=== PATIENT | male | born 1985 | race Caucasian/White ===

== ENCOUNTER 2018-09-10 10:42 | Inpatient (IN) | payer BC ==
[2018-09-10 12:32] VITALS: BMI 34.8
--- NOTE | 2018-09-10 13:34 | HP ---
CIWA Score Nausea/Vomitin Muscle Tremors: 2 Anxiety: 3 Agitation: 0-Normal Activity Paroxysmal Sweats: 2 Orientation: 0-Oriented Tacttile Disturbances: 1-Very Mild Itch/Numbness Auditory Disturbances: 0-None Visual Disturbances: 2-Mild Sensitivity Headache: 2-Mild CIWA-Ar Total Score: 14 - Admission Criteria OASAS Guidelines: Admission for Medically Managed Detox: Requires at least one of the followin. CIWA greater than 12 2. Seizures within the past 24 hours 3. Delirium tremens within the past 24 hours 4. Hallucinations within the past 24 hours 5. Acute intervention needed for co occurring medical disorder 6. Acute intervention needed for co occurring psychiatric disorder 7. Severe withdrawal that cannot be handled at a lower level of care (continued vomiting, continued diarrhea, abnormal vital signs) requiring intravenous medication and/or fluids 8. Patient presents the following: CIWA greater than 12 Admission Criteria Met: Admission criteria met Admission ROS S - HPI Chief Complaint: " I am here detox off xanax " Allergies/Adverse Reactions: Allergies Allergy/AdvReac Type Severity Reaction Status Date / Time No Known Allergies Allergy Verified 09/10/18 12:50 History of Present Illness: 33 yo male with hx of heroin (nasal), xanax and nicotine dependence is here seeking detox for xanax. Utox positive for daryl, fen, opi, mtd, bzo. Patient currently on MMTP [facility] on methadone 70 mg , last medicated today, dose verified. Hx depression and anxiety. Denies any hx of seizures or black outs Exam Limitations: No Limitations - Ebola screening Have you traveled outside of the country in the last 21 days: No Have you had contact with anyone from an Ebola affected area: No Have you been sick,other than usual withdrawal symptoms: No Do you have a fever: No - Review of Systems Constitutional: Chills, Diaphoresis, Loss of Appetite, Changes in sleep EENT: reports: No Symptoms Reported Respiratory: reports: Shortness of Breath (when anxious) Cardiac: reports: No Symptoms Reported GI: reports: Nausea, Poor Appetite, Poor Fluid Intake : reports: No Symptoms Reported Musculoskeletal: reports: Joint Pain Integumentary: reports: No Symptoms Reported Neuro: reports: See HPI, Headache, Tingling, Dizziness Endocrine: reports: Increased Thirst Hematology: reports: No Symptoms Reported Psychiatric: reports: Orientated x3, Anxious Other Systems: Reviewed and Negative Patient History - Patient Medical History Hx Anemia: No Hx Asthma: No Hx Chronic Obstructive Pulmonary Disease (COPD): No Hx Cancer: No Hx Cardiac Disorders: No Hx Congestive Heart Failure: No Hx Hypertension: No Hx Hypercholesterolemia: No Hx Pacemaker: No HX Cerebrovascular Accident: No Hx Seizures: No Hx Dementia: No Hx Diabetes: No Hx Gastrointestinal Disorders: No Hx Liver Disease: No Hx Genitourinary Disorders: No Hx Sexually Transmitted Disorders: No Hx Renal Disease (ESRD): No Hx Thyroid Disease: No Hx Human Immunodeficiency Virus (HIV): No Hx Hepatitis C: No Hx Depression: Yes Hx Suicide Attempt: No Hx Bipolar Disorder: No Hx Schizophrenia: No - Patient Surgical History Past Surgical History: Yes Hx Orthopedic Surgery: Yes (left shoulder surgery 2012) - PPD History Previous Implant?: Yes (hx of BCG vaccine in [place]) Documented Results: Positive w/o proof Implanted On Prior [facility] Admission?: No PPD to be Administered?: No - Reproductive History Patient : No - Smoking Cessation Smoking history: Current every day smoker Have you smoked in the past 12 months: Yes Aproximately how many cigarettes per day: 10 Hx Chewing Tobacco Use: No Initiated information on smoking cessation: Yes 'Breaking Loose' booklet given: 09/10/18 - Substance & Tx. History Hx Alcohol Use: No Hx Substance Use: Yes Substance Use Type: Heroin, Tranquilizers Hx Substance Use Treatment: Yes (Last detox [facility] two years ago) - Substances Abused Heroin Route: Inhalation Frequency: Daily Amount used: 10 bags Age of first use: 23 Date of Last Use: 09/08/18 Alprazolam (Xanax) Route: Oral Frequency: Daily Amount used: 6mg Age of first use: 28 Date of Last Use: 09/08/18 Family Disease History - Family Disease History Family History: Denies Admission Physical Exam [facility] - Vital Signs Vital Signs: Vital Signs - 24 hr 09/10/18 12:29 Temperature 98.4 F Pulse Rate 50 L Respiratory 18 Rate Blood Pressure 112/56 L - Physical General Appearance: Yes: Appropriately Dressed, Obese, Sweating, Anxious HEENTM: Yes: EOMI, Hearing grossly Normal, Normal ENT Inspection, Normocephalic , Normal Voice, GENO, Pharynx Normal, Tm's normal Respiratory: Yes: Chest Non-Tender, Lungs Clear, Normal Breath Sounds, No Respiratory Distress, No Accessory Muscle Use Neck: Yes: Within Normal Limits Breast: Yes: Breast Exam Deferred Cardiology: Yes: Regular Rhythm, Bradycardia Abdominal: Yes: Normal Bowel Sounds, Non Tender, Flat, Soft Genitourinary: Yes: Within Normal Limits Back: Yes: Normal Inspection Musculoskeletal: Yes: full range of Motion, Gait Steady, Pelvis Stable Extremities: Yes: Normal Capillary Refill, Normal Inspection, Normal Range of Motion, Non-Tender Neurological: Yes: gantry rigger II-XII NML intact, Fully Oriented, Alert, Motor Strength 5/5, Normal Mood/Affect (anxious) Integumentary: Yes: Normal Color, Warm, Diaphoresis Lymphatic: Yes: Within Normal Limits - Diagnostic (1) Opioid dependence on agonist therapy Current Visit: Yes Status: Acute (2) Sedative, hypnotic or anxiolytic dependence with withdrawal, uncomplicated Current Visit: Yes Status: Acute Cleared for Admission [facility] - Detox or Rehab [facility] Level of Care: Medically Managed Detox Regimen/Protocol: Valium [facility] Breath Alcohol Content Breath Alcohol Content: 0 Urine Drug Screen - Results Drug Screen Negative: No Urine Drug Screen Results: DARYL-Cocaine, OPI-Opiates, BZO-Benzodiazepines, MTD- Methadone, FEN-Fentanyl Inpatient Rehab Admission - Rehab Decision to Admit Inpatient rehab admission?: No
[2018-09-10] MEDS ORDERED: MAGNESIUM HYDROX 2400MG/30ML ORAL SUSPENSION 30 ML CUP PO PRN (13:37)
[2018-09-10] MEDS ORDERED: METHOCARBAMOL 500 MG TABLET PO PRN (13:37)
[2018-09-10] MEDS ORDERED: MELATONIN 5 MG TABLETS PO PRN (13:37)
[2018-09-10] MEDS ORDERED: MENTHOL/PHENOL 1 EACH UD MM PRN (13:37)
[2018-09-10] MEDS ORDERED: hydrOXYzine PAMOATE 25 MG CAPSULE (FP) PO PRN (13:37)
[2018-09-10] MEDS ORDERED: MAG HYDROX/AL HYDROX/SIMETH 30 ML UNIT-DOSE CUP PO PRN (13:37)
[2018-09-10] MEDS ORDERED: MAGNESIUM CITRATE 300 ML BOTTLE PO PRN (13:37)
[2018-09-10] MEDS ORDERED: IBUPROFEN 400 MG TABLET (FP) PO PRN (13:37)
[2018-09-10] MEDS ORDERED: BISMUTH SUBSALICYLATE 524 MG/30 ML UD PO PRN (13:37)
[2018-09-10] MEDS ORDERED: ACETAMINOPHEN 325 MG TABLET (FP) PO PRN ×2 (13:37)
[2018-09-10] MEDS ORDERED: ONDANSETRON *ODT* 4 MG TABLET SL PRN (13:37)
[2018-09-10] MEDS ORDERED: diazePAM 5 MG TABLET PO ONE (14:40)
[2018-09-10] MEDS: diazePAM 5 MG TABLET PO PRN (19:34)
[2018-09-10] MEDS: diazePAM 5 MG TABLET PO SCH (22:20)
[2018-09-10] MEDS: THIAMINE HCL 100 MG TABLET (FP) PO SCH (22:20)
[2018-09-11 00:08] LABS: URINE APPEARANCE CLEAR; URINE BILIRUBIN NEGATIVE (<2.0 mg/dL); URINE COLOR DKYELLOW; URINE GLUCOSE (UA) NEGATIVE (NEGATIVE); URINE KETONE NEGATIVE (NEGATIVE); URINE LEUK ESTERASE NEGATIVE (NEGATIVE); URINE NITRITE NEGATIVE (NEGATIVE); URINE PROTEIN NEGATIVE (NEGATIVE); URINE UROBILINOGEN NEGATIVE mg/dL (0.2-1.0)
[2018-09-11] MEDS: diazePAM 5 MG TABLET PO SCH ×3 (05:25→22:23)
[2018-09-11] MEDS ORDERED: METHADONE HCL 40 MG DISPERSABLE TABLET ONE (05:59)
[2018-09-11] MEDS ORDERED: METHADONE HCL 10 MG TABLET ONE (05:59)
[2018-09-11] MEDS ORDERED: METHADONE HCL 10 MG TABLET PO SCH (06:00)
[2018-09-11] MEDS: METHADONE 40 MG, METHADONE 30 MG PO SCH (06:02)
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
[2018-09-11 09:22] LABS: HEMATOCRIT 44.6 % (35.4-49); HEMOGLOBIN 15.6 GM/dL (11.7-16.9); MCH 30.3 pg (25.7-33.7); MCHC 34.9 g/dl (32.0-35.9); MEAN CELL VOLUME 87.1 fl (80-96); MEAN PLT VOLUME 9.1 fl (7.5-11.1); PLATELET COUNT 266 K/MM3 (134-434); RBC 5.13 M/mm3 (4.00-5.60); RDW 13.5 % (11.9-15.9); WHITE BLOOD COUNT 9.8 K/mm3 (4.0-10.0)
--- NOTE | 2018-09-11 09:23 | PN ---
[facility] CIWA - CIWA Score Nausea/Vomitin Muscle Tremors: 2 Anxiety: 2 Agitation: 2 Paroxysmal Sweats: 1-Minimal Palms Moist Orientation: 0-Oriented Tacttile Disturbances: 1-Very Mild Itch/Numbness Auditory Disturbances: 1-Very Mild Visual Disturbances: 0-None Headache: 2-Mild CIWA-Ar Total Score: 13 [facility] Progress Note (SOAP) Subjective: alert,irritable,anxious,interrupted sleep,tremor Objective: 09/11/18 09:21 Vital Signs Temperature 98.6 F 09/11/18 09:16 Pulse Rate 50 L 09/11/18 09:16 Respiratory Rate 18 09/11/18 09:16 Blood Pressure 109/63 09/11/18 09:16 O2 Sat by Pulse Oximetry (%) 09/11/18 09:21 ekg sinus bradycardia 49/min,qt/qtc 496/448 no chest pain,nosob,no dizziness Assessment: 09/11/18 09:22 withdrawal symptom Plan: continue detox
[2018-09-11] MEDS: PRENATAL VITAMINS W/ FOLIC ACID TABLET (FP) PO SCH (10:17)
[2018-09-11] MEDS: NICOTINE POLACRILEX 2 MG GUM BUC PRN ×3 (10:18→19:32)
[2018-09-11] MEDS: NICOTINE 14 MG/24 HOURS TOPICAL PATCH TD SCH (10:18)
[2018-09-11] MEDS: diazePAM 5 MG TABLET PO PRN (10:20)
--- NOTE | 2018-09-11 10:45 | EKG ---
Test Reason : Blood Pressure : / mmHG Vent. Rate : 049 BPM Atrial Rate : 049 BPM P-R Int : 172 ms QRS Dur : 092 ms QT Int : 496 ms P-R-T Axes : 047 057 054 degrees QTc Int : 448 ms SINUS BRADYCARDIA OTHERWISE NORMAL ECG NO PREVIOUS ECGS AVAILABLE Confirmed by Ephraim Saez MD ([id number]) on 09/11/2018 10:45:02 AM Referred By: ALBINA FIGUEROA Confirmed By:Ephraim Saez MD
[2018-09-11 11:59] LABS: ALBUMIN 4.2 g/dl (3.4-5.0); ALK PHOS 71 U/L (45-117); ANION GAP 10 MMOL/L (8-16); BILIRUBIN,TOTAL 0.5 mg/dL (0.2-1); BLOOD UREA NITROGEN 15 mg/dL (7-18); CALCIUM 9.5 mg/dL (8.5-10.1); CHLORIDE 105 mmol/L (98-107); CO2 23 mmol/L (21-32); GLUCOSE,RANDOM 106 mg/dL (74-106); POTASSIUM 4.1 mmol/L (3.5-5.1); SGOT/AST 18 U/L (15-37); SGPT/ALT 32 U/L (13-61); SODIUM 138 mmol/L (136-145)
[2018-09-11] MEDS: THIAMINE HCL 100 MG TABLET (FP) PO SCH (22:23)
[2018-09-12] MEDS ORDERED: METHADONE HCL 40 MG DISPERSABLE TABLET ONE (04:53)
[2018-09-12] MEDS ORDERED: METHADONE HCL 10 MG TABLET ONE (04:54)
[2018-09-12] MEDS: METHADONE 40 MG, METHADONE 30 MG PO SCH (06:03)
[2018-09-12] MEDS: diazePAM 5 MG TABLET PO PRN ×2 (06:04→17:20)
[2018-09-12] MEDS: NICOTINE 14 MG/24 HOURS TOPICAL PATCH TD SCH (11:15)
[2018-09-12] MEDS: PRENATAL VITAMINS W/ FOLIC ACID TABLET (FP) PO SCH (11:15)
[2018-09-12] MEDS: diazePAM 5 MG TABLET PO SCH ×2 (11:15→21:07)
--- NOTE | 2018-09-12 11:15 | PN ---
S CIWA - CIWA Score Nausea/Vomitin-Mild Nausea/No Vomiting Muscle Tremors: 1-None Visible, but [place] Anxiety: 1-Mildly Anxious Agitation: 1-Slight > Activity Paroxysmal Sweats: No Perspiration Orientation: 0-Oriented Tacttile Disturbances: 0-None Auditory Disturbances: 0-None Visual Disturbances: 0-None Headache: 0-None Present CIWA-Ar Total Score: 4 BHS Progress Note (SOAP) Subjective: pt staes he is feeling better, on valium for benzo detox protocol, pt would like to go to [facility] O: Vital Signs - 24 hr 09/11/18 09/11/18 09/11/18 14:13 17:20 21:34 Temperature 98.2 F 98.1 F 98.2 F Pulse Rate 53 L 53 L 50 L Respiratory 16 18 20 Rate Blood Pressure 123/73 108/55 L 124/82 09/12/18 09/12/18 09/12/18 03:30 07:19 09:30 Temperature 97.9 F 97.2 F L Pulse Rate 38 L 54 L Respiratory 18 18 18 Rate Blood Pressure 103/47 L 113/67 Laboratory Tests 09/10/18 09/11/18 09/11/18 22:00 06:00 06:00 WBC 9.8 RBC 5.13 Hgb 15.6 Hct 44.6 MCV 87.1 MCH 30.3 MCHC 34.9 RDW 13.5 Plt Count 266 MPV 9.1 Sodium 138 Potassium 4.1 Chloride 105 Carbon Dioxide 23 Anion Gap 10 BUN 15 Creatinine 1.0 Creat Clearance w eGFR 85.03 Random Glucose 106 Calcium 9.5 Total Bilirubin 0.5 AST 18 ALT 32 Alkaline Phosphatase 71 Total Protein 8.0 Albumin 4.2 Urine Color Dkyellow Urine Appearance Clear Urine pH 5.0 Ur Specific [place] 1.029 Urine Protein Negative Urine Glucose (UA) Negative Urine Ketones Negative Urine Blood Negative Urine Nitrite Negative Urine Bilirubin Negative Urine Urobilinogen Negative Ur Leukocyte Esterase Negative RPR Titer 09/11/18 06:00 WBC RBC Hgb Hct MCV MCH MCHC RDW Plt Count MPV Sodium Potassium Chloride Carbon Dioxide Anion Gap BUN Creatinine Creat Clearance w eGFR Random Glucose Calcium Total Bilirubin AST ALT Alkaline Phosphatase Total Protein Albumin Urine Color Urine Appearance Urine pH Ur Specific [place] Urine Protein Urine Glucose (UA) Urine Ketones Urine Blood Urine Nitrite Urine Bilirubin Urine Urobilinogen Ur Leukocyte Esterase RPR Titer Nonreactive WNL, labs and VS a/p: continue detox protocol for benzo continue MAT methadone rehab after detox
[2018-09-12] MEDS: NICOTINE POLACRILEX 2 MG GUM BUC PRN ×2 (11:57→21:00)
[2018-09-12] MEDS: THIAMINE HCL 100 MG TABLET (FP) PO SCH (21:07)
[2018-09-13] MEDS ORDERED: METHADONE HCL 40 MG DISPERSABLE TABLET ONE (04:20)
[2018-09-13] MEDS ORDERED: METHADONE HCL 10 MG TABLET ONE (04:21)
[2018-09-13] MEDS: METHADONE 40 MG, METHADONE 30 MG PO SCH (05:17)
[2018-09-13] MEDS ORDERED: diazePAM 5 MG TABLET PO SCH (06:00)
[2018-09-13 09:52] VITALS: BP 101/56; PULSE 50; TEMP 97.9
--- NOTE | 2018-09-13 10:28 | PN ---
S Progress Note (SOAP) Subjective: alert,no complaint Objective: 09/13/18 10:27 Vital Signs Temperature 97.9 F 09/13/18 09:52 Pulse Rate 50 L 09/13/18 09:52 Respiratory Rate 18 09/13/18 09:52 Blood Pressure 101/56 L 09/13/18 09:52 O2 Sat by Pulse Oximetry (%) Assessment: 09/13/18 10:27 detox completed,no withdrawal symptom Plan: discharge today,follow up with after care program as arrangement
--- NOTE | 2018-09-13 10:32 | DS ---
[facility] Detox Discharge Summary Admission Date: 09/10/18 Discharge Date: 09/13/18 - History Present History: Sedative Dependence, MMTP Additional Comments: follow up with after care program as arrangement eloy richardson Pertinent Past History: mmtp - Physical Exam Results Vital Signs: Vital Signs Temperature 97.9 F 09/13/18 09:52 Pulse Rate 50 L 09/13/18 09:52 Respiratory Rate 18 09/13/18 09:52 Blood Pressure 101/56 L 09/13/18 09:52 O2 Sat by Pulse Oximetry (%) Pertinent Admission Physical Exam Findings: withdrawal symptom Vital Signs Temperature 97.9 F 09/13/18 09:52 Pulse Rate 50 L 09/13/18 09:52 Respiratory Rate 18 09/13/18 09:52 Blood Pressure 101/56 L 09/13/18 09:52 O2 Sat by Pulse Oximetry (%) - Treatment Hospital Course: Detox Protocol Followed, Detoxed Safely, Responded well, Discharged Condition Good (eloy richardson) - Medication Discharge Medications: Ambulatory Orders NK [No Known Home Medication] 09/10/18 - Diagnosis (1) Sedative, hypnotic or anxiolytic dependence with withdrawal, uncomplicated Current Visit: Yes Status: Acute (2) Nicotine dependence Current Visit: Yes Status: Chronic (3) Opioid dependence on agonist therapy Current Visit: Yes Status: Chronic (4) Rotator cuff arthropathy of left shoulder Current Visit: Yes Status: Chronic - AMA Did Patient Leave Against Medical Advice: No
[2018-09-13] MEDS: NICOTINE 14 MG/24 HOURS TOPICAL PATCH TD SCH (10:43)
[2018-09-13] MEDS: PRENATAL VITAMINS W/ FOLIC ACID TABLET (FP) PO SCH (10:44)
== END 2018-09-13 10:25 | disposition home or self-care (01) | DRG 773 ==
LOC: YASAS 10:42 → Y6N 14:15
PROVIDERS: ADMIT Surgery; ATTEND Surgery
PROC: HZ2ZZZZ Detoxification Services for Substance Abuse Treatment (ICD-10-PCS; principal; 2018-09-10)
DX: F13.230 Sedative, hypnotic or anxiolytic dependence with withdrawal, uncomplicated (principal); F11.20 Opioid dependence, uncomplicated; F17.210 Nicotine dependence, cigarettes, uncomplicated; F19.282 Other psychoactive substance dependence with psychoactive substance-induced sleep disorder; F41.9 Anxiety disorder, unspecified; M12.812 Other specific arthropathies, not elsewhere classified, left shoulder
CPT/HCPCS: 36415; 71046-TC-FY; 80053; 81003; 85027; 86593; 93005; 93010